=== PATIENT | male | born 1940 | race Hispanic/Latino ===

== ENCOUNTER 2018-09-11 11:59 | Inpatient (IN) | payer BC, MEDICARE ==
[2018-09-11] VITALS (22 sets, daily range): BP systolic 123–178; BP diastolic 58–91
[~2018-09-11] VITALS: Ht 165.1 cm; Wt 60.3 kg
--- NOTE | 2018-09-11 12:40 | NUR ---
PATIENT RECEIVED FROM [facility] BY STRETCHER. ALERT TO PERSON, ABLE TO OPEN EYES WHEN NAME CALLED. MCBRIDE CATHETER WITH CLOUDY URINE. ASSISTED WITH DIAPER CHANGE, HAD A LARGE BM. REPOSITIONED IN BED. PATIENT VOMITED MODERATE AMOUNT OF GREENISH FLUID. V/S CHECKED, 99.5-151-21-166/88 AND 83% ON 3L N/C. O2 INCREASED TO 8L, BUT STILL NO CHANGE. MD NOTIFIED NEW ORDERS RECEIVED TO TRANSFER PATIENT TO ICU. PATIENT CHANGED, EMESIS BAGS PROVIDED. FAMILY AT BED SIDE. BED IN LOWER POSITION, CALL LIGHT AT REACH.
[2018-09-11] MEDS ORDERED: ONDANSETRON HCL INJ 2MG/ML 2ML 2 MG/ML VIAL IV PRN (12:45)
[2018-09-11] MEDS ORDERED: HYDRALAZINE HCL 20 MG/ML VIAL IV PRN (12:45)
--- NOTE | 2018-09-11 13:15 | NUR ---
REPORT CALLED AND GIVEN TO RECEIVING NURSE. PATIENT TRANSFERRED TO ICU ROOM 192.
[2018-09-11 13:43] LABS: BASOPHILS % 0.1 % (0.0-1.0); HEMATOCRIT 35.1 % (38.2-49.6); HEMOGLOBIN 11.1 g/dL (14.0-18.0); LYMPHOCYTES # (AUTO) 0.4 (1.0-3.2); MEAN CORPUSCULAR HEMOGLOBIN 23.4 pg (28-32); MEAN CORPUSCULAR HGB CONC 31.6 g/dL (31-35); MEAN CORPUSCULAR VOLUME 73.9 fL (81-99); MONOCYTES # (AUTO) 1.1 (0.2-0.8); MONOCYTES % 6.2 % (4.4-11.3); NEUTROPHILS # (AUTO) 16.5 (2.1-6.9); PLATELET COUNT 416 x10e3/uL (140-360); RED BLOOD COUNT 4.75 x10e6/uL (4.3-5.7); RED CELL DISTRIBUTION WIDTH 20.4 % (11.7-14.4)
[2018-09-11 13:51] LABS: ANION GAP 13.4 mmol/L (8-16); BLOOD UREA NITROGEN 23 mg/dL (7-26); BUN/CREATININE RATIO 27 (6-25); CALCIUM 9.1 mg/dL (8.4-10.2); CARBON DIOXIDE 21 mmol/L (22-29); CHLORIDE 97 mmol/L (98-107); CREATININE, SERUM 0.85 mg/dL (0.72-1.25); EST GLOMERULAR FILTRATION RATE > 60 ML/MIN (60-); GLUCOSE 189 mg/dL (74-118); MAGNESIUM 1.7 MG/DL (1.3-2.1); POTASSIUM 3.4 mmol/L (3.5-5.1); SODIUM 128 mmol/L (136-145)
[2018-09-11] MEDS ORDERED: SODIUM CHLORIDE 0.9% 250ML 250 ML ONE (13:52)
[2018-09-11] MEDS: D5NS/KCL 20MEQ 1,000 ML IV SCH ×2 (14:00→21:44)
[2018-09-11] MEDS: CEFTRIAXONE SOD 1 GM/NS 50 ML 50 ML IV SCH (14:01)
[2018-09-11 14:20] LABS: ABG HCO3 20 mmol/L (23-28); ABG PCO2 30 mmHg (41-51); ABG PH 7.44 (7.31-7.41); ABG PO2 55 mmHg (80-105)
--- NOTE | 2018-09-11 14:22 | Diagnostic Imaging Report ---
Examination: Single AP view of the chest. COMPARISON: None. INDICATION: Respiratory distress DISCUSSION: Lines/tubes: None. Lungs: Mild lingular opacity. Pleura: No pleural effusion or pneumothorax. Heart and mediastinum: The heart and the mediastinum are unremarkable. Bones and soft tissues: No acute bony abnormalities. IMPRESSION: 1. Lingular opacity may reflect pneumonia. Signed by: Dr. Juan Romo M.D. on 09/11/2018 2:19 PM
[2018-09-11] MEDS: CLINDAMYCIN 600MG / 50ML 50 ML IV SCH ×2 (14:57→23:01)
[2018-09-11] MEDS: AZITHROMYCIN 500MG/NS 250 ML 250 ML IV SCH (14:57)
[2018-09-11] MEDS ORDERED: OMEPRAZOLE40 MG PO (15:32)
[2018-09-11] MEDS ORDERED: TARON FORTE CA1 EACH PO (15:32)
[2018-09-11] MEDS ORDERED: FLOMAX0.4 MG PO (15:32)
[2018-09-11] MEDS ORDERED: PIROXICAM20 MG PO (15:32)
[2018-09-11] MEDS ORDERED: BACLOFEN10 MG PO (15:32)
[2018-09-11] MEDS: NYSTATIN 15 GM POWDER UD BTL TOP SCH (16:35)
[2018-09-11] MEDS: FAMOTIDINE 20 MG/2 ML VIAL IV SCH (16:35)
[2018-09-11] MEDS: ENOXAPARIN 30 MG/0.3 ML SYR SC SCH (16:35)
--- NOTE | 2018-09-11 17:07 | Diagnostic Imaging Report ---
EXAMINATION: CT of the chest, abdomen and pelvis with contrast. TECHNIQUE: Helical CT images of the chest, abdomen and pelvis were performed from the lung apices to the lesser trochanters after the intravenous administration of 100 cc of Isovue 300 and the oral administration of none. Coronal and sagittal reformatted images were obtained. Dose modulation, iterative reconstruction, and/or weight based adjustment of the mA/kV was utilized to reduce the radiation dose to as low as reasonably achievable. COMPARISON: None. CLINICAL HISTORY:Leukocytosis, evaluate for aspiration. Altered mental status. DISCUSSION: CHEST: LINES/TUBES: None. LUNGS AND AIRWAYS: Aspiration/pneumonia within the left lower lobe. Pulmonary arteriovenous malformation within the lingula. Atelectasis in the right dependent lung. PLEURA: The pleural spaces are clear.No significant mediastinal, hilar or axillary lymphadenopathy is seen. HEART AND MEDIASTINUM: The thyroid gland is normal. The heart and pericardium are within normal limits. LYMPH NODES: BONES AND SOFT TISSUES: No bony destructive lesions. No soft tissue abnormalities. ABDOMEN/PELVIS: HEPATOBILIARY:No focal hepatic lesions. No biliary ductal dilation. The gallbladder is normal. SPLEEN: No splenomegaly. PANCREAS: No focal masses or ductal dilatation. ADRENALS: No adrenal nodules. KIDNEYS/URETERS: No hydronephrosis, stones, or solid mass lesions. PELVIC ORGANS/BLADDER: Circumferential bladder wall thickening. Prostate enlarged. Hawley catheter present. Multiple probable calculi within the posterior bladder lumen. PERITONEUM/RETROPERITONEUM: No free air or fluid. LYMPH NODES: No intra-abdominal,retroperitoneal, pelvic or inguinal lymphadenopathy. VESSELS: The celiac trunk,superior and inferior mesenteric and bilateral renal arteries are patent The portal, superior mesenteric and splenic veins are patent. GI TRACT: No distention or wall thickening. BONES AND SOFT TISSUES: No bony destructive lesions. No soft tissue abnormalities. IMPRESSION: Left lower lobe aspiration/pneumonia. Prostate hypertrophy with multiple bladder calculi. Hawley catheter present. Signed by: Dr. Juan Romo M.D. on 09/11/2018 5:04 PM
[2018-09-11] MEDS ORDERED: SODIUM CHLORIDE 0.9% 50ML 50 ML ONE (17:35)
[2018-09-11] MEDS ORDERED: IOPAMIDOL 370 MG/ML 200 ML INFUS..BTL INJ ONE (17:35)
[2018-09-11] MEDS ORDERED: ACETAMINOPHEN 1000 MG/100 ML IV SCH (18:00)
--- NOTE | 2018-09-11 18:10 | Diagnostic Imaging Report ---
EXAMINATION: Abdominal ultrasound. CLINICAL INDICATION: Nausea and vomiting COMPARISON: CT September 11 DISCUSSION: Transverse and longitudinal images of the upper abdomen were obtained. The liver is normal in size measuring 13.1 centimeters in length in the right midclavicular line and shows normal echogenicity. No focal masses are seen in the liver. There is no intrahepatic biliary dilatation. The common bile duct measures 0.3 cm. The gallbladder contains echogenic sludge. No calculi. No wall thickening. Pancreas and spleen poorly visualized. The right kidney measures 9.5 centimeters in length and the left kidney measures 9.3 centimeters. There is normal renal cortical echogenicity and no hydronephrosis, solid mass or shadowing calculi. The visualized portions of the great vessels are normal. No free fluid is seen. IMPRESSION: Gallbladder sludge, otherwise unremarkable. Signed by: Dr. Juan Romo M.D. on 09/11/2018 6:07 PM
--- NOTE | 2018-09-11 19:05 | Consultation ---
DATE OF CONSULTATION: Pulmonary Critical Care Consultation CHIEF COMPLAINT: Syncope, infiltrate on chest x-ray, and decreased responsiveness. HISTORY OF PRESENT ILLNESS: The patient is a 77-year-old man. According to the family, he had no prior cardiopulmonary disease. He has been losing some weight over the past couple of months. Two weeks ago, he had a syncopal episode. He had another syncopal episode today and went to [facility]. They had difficulty arousing the patient. They also did a chest x-ray that showed an infiltrate consistent with aspiration pneumonia. His white blood cell count was 12.3 and hemoglobin was low at 10.7 with decreased MCV. PAST MEDICAL HISTORY: 1. Benign prostatic hypertrophy. 2. Gastroesophageal reflux. PAST SURGICAL HISTORY: Noncontributory. SOCIAL HISTORY: The patient is not a smoker. He is not a drinker. ALLERGIES: THE PATIENT HAS NO KNOWN DRUG ALLERGIES. REVIEW OF SYSTEMS: The patient is not responding well. He may have had some fevers at home, although this is uncertain. He is not having headache or neck pain. He has no chest pain. He does have increased congestion and increased cough. He has some dyspnea. He has no abdominal pain. He has no nausea or vomiting. He has no leg edema. PHYSICAL EXAMINATION: VITAL SIGNS: The patient is afebrile. His oxygen saturation is low on a nasal cannula in the low 80s. HEENT: Shows no facial swelling or erythema. The nasal mucosa is normal. The oropharynx is dry. He has poor dentition. LYMPHATIC: Shows no submandibular, cervical, or supraclavicular adenopathy. CARDIAC: Reveals regular rate and rhythm with normal S1 and S2. There are no murmurs or rubs heard. LUNGS: Auscultation of lungs reveals rhonchorous breath sounds bilaterally. There is no wheezing. ABDOMEN: Soft and nontender. There is no rebound or guarding. EXTREMITIES: No leg edema or calf tenderness. There is no cyanosis or clubbing. SKIN: Shows no rashes. NEUROLOGIC: Shows the patient to be poorly responsive. RADIOGRAPHIC DATA: Chest x-ray shows basal infiltrate on the left side. IMPRESSION: 1. Aspiration pneumonia with sepsis, present on admission. 2. Metabolic encephalopathy. 3. Moderate protein-calorie malnutrition. 4. Microcytic anemia secondary to chronic blood loss. 5. Prostatic hypertrophy. 6. Recent weight loss. PLAN: 1. The patient will have ABG and be placed on higher level of oxygen or BiPAP. 2. Intensive care unit. 3. Panculture. The patient will begin broad-spectrum antibiotics to cover for aspiration pneumonia. 4. The patient needs CT scan of the chest as well as possible MRI of the head. 5. GI evaluation for blood loss. 6. Case discussed with daughter, nursing, and Citlalli Miguel, family nurse practitioner. Josh Simpson MD [facility] /[id number]
[2018-09-11] MEDS ORDERED: CYPROHEPTADINE H4 MG PO (21:27)
[2018-09-11] MEDS ORDERED: CEFDINIR125 MG/5 M (21:31)
[2018-09-11] MEDS ORDERED: ACETAMINOPHEN 650 MG SUPP PR PRN (22:15)
[2018-09-11 23:13] LABS: INR 1.52; PROTHROMBIN TIME 18.9 seconds (11.9-14.5)
[2018-09-11 23:14] LABS: PARTIAL THROMBOPLASTIN TIME 42.6 seconds (23.8-35.5)
[2018-09-12] VITALS (25 sets, daily range): BP systolic 94–156; BP diastolic 53–81
--- NOTE | 2018-09-12 | NUR ---
Unsuccessful attempt to place Ngt and small amout of nasal bleeding noted. Called and spoke with H.Prince GARCIA. Coagulation labs were done and reported back to H.Prince GARCIA. Due to slight elevation of PT/PTT and history of nose bleeds, was advised to not attempt placement again tonight. Await re-eval today and further orders from Dr Falcon's team.
[2018-09-12 04:54] LABS: BASOPHILS % 0.2 % (0.0-1.0); EOSINOPHILS % 0.2 % (0.0-6.0); HEMATOCRIT 30.1 % (38.2-49.6); HEMOGLOBIN 9.4 g/dL (14.0-18.0); LYMPHOCYTES # (AUTO) 0.7 (1.0-3.2); LYMPHOCYTES % 4.7 % (18.0-39.1); MEAN CORPUSCULAR HEMOGLOBIN 23.3 pg (28-32); MEAN CORPUSCULAR HGB CONC 31.2 g/dL (31-35); MEAN CORPUSCULAR VOLUME 74.5 fL (81-99); MONOCYTES # (AUTO) 1.4 (0.2-0.8); MONOCYTES % 8.9 % (4.4-11.3); NEUTROPHILS # (AUTO) 13.5 (2.1-6.9); NEUTROPHILS % 85.5 % (38.7-80.0); PLATELET COUNT 280 x10e3/uL (140-360); RED BLOOD COUNT 4.04 x10e6/uL (4.3-5.7); RED CELL DISTRIBUTION WIDTH 20.5 % (11.7-14.4)
[2018-09-12 05:12] LABS: ANION GAP 10.8 mmol/L (8-16); BLOOD UREA NITROGEN 16 mg/dL (7-26); BUN/CREATININE RATIO 23 (6-25); CALCIUM 8.4 mg/dL (8.4-10.2); CARBON DIOXIDE 22 mmol/L (22-29); CHLORIDE 111 mmol/L (98-107); CREATININE, SERUM 0.71 mg/dL (0.72-1.25); EST GLOMERULAR FILTRATION RATE > 60 ML/MIN (60-); GLUCOSE 154 mg/dL (74-118); MAGNESIUM 1.9 MG/DL (1.3-2.1); POTASSIUM 3.8 mmol/L (3.5-5.1); SODIUM 140 mmol/L (136-145)
[2018-09-12 05:23] LABS: B-TYPE NATRIURETIC PEPTIDE2 144.2 pg/mL (0-100)
[2018-09-12 05:34] LABS: FREE T4 (FREE THYROXINE) 0.98 ng/dL (0.9-1.8); THYROID STIMULATING HORMONE 1.822 uIU/mL (0.350-4.940)
[2018-09-12] MEDS: D5NS/KCL 20MEQ 1,000 ML IV SCH ×3 (05:36→21:26)
[2018-09-12] MEDS: CLINDAMYCIN 600MG / 50ML 50 ML IV SCH ×3 (05:36→21:39)
[2018-09-12] MEDS: FAMOTIDINE 20 MG/2 ML VIAL IV SCH ×2 (08:44→16:20)
[2018-09-12] MEDS: NYSTATIN 15 GM POWDER UD BTL TOP SCH ×2 (09:00→16:20)
[2018-09-12] MEDS: TAMSULOSIN HCL 0.4 MG CAP PO SCH (09:00)
[2018-09-12] MEDS: PANTOPRAZOLE SOD 40 MG TABEC PO SCH (09:00)
[2018-09-12] MEDS ORDERED: OXYMETAZOLINE HCL 0.05% NAS 1 SPRAY BTL ONE (10:00)
[2018-09-12] MEDS ORDERED: GADOBENATE DIMEGLUMINE 1 ML IV ONE (10:32)
--- NOTE | 2018-09-12 11:32 | Progress Note ---
DATE: SUBJECTIVE: The patient received IV fluids and antibiotics yesterday. He is more awake. He was evaluated by Speech Pathology and felt to be a risk for aspiration. The nursing staff attempted to put in an NG tube last night, but he had some nostril bleeding. PHYSICAL EXAMINATION: VITAL SIGNS: The patient is afebrile. The blood pressure is 111/62 and the pulse is 71. Saturation is 100%. HEENT: Shows no facial swelling or erythema. The nasal mucosa is normal. The oropharynx is normal. LYMPHATIC: Shows no submandibular, cervical or supraclavicular adenopathy. CARDIAC: Reveals regular rate and rhythm with a normal S1 and S2. There are no murmurs or rubs. LUNGS: Auscultation of lungs reveals clear breath sounds bilaterally. There is no wheezing. ABDOMEN: Soft, nontender. There is no rebound or guarding. EXTREMITIES: Show no leg edema or calf tenderness. There is no cyanosis or clubbing. SKIN: Shows no rashes. NEUROLOGICAL: Shows no focal abnormalities. LABORATORY DATA: Hemoglobin is 9.4 with an MCV of 74.5. The platelet count is 280. The white blood cell count is 15.8. The BUN to creatinine ratio is 16 to 0.71. RADIOGRAPHIC DATA: CT scan of the abdomen, pelvis and chest shows a left lower lobe aspiration pneumonia and some prostatic hypertrophy. IMPRESSION: 1. Aspiration pneumonia with sepsis, present on admission. 2. Metabolic encephalopathy. 3. Severe protein calorie malnutrition. 4. Microcytic anemia secondary to chronic blood loss. 5. Prostatic hypertrophy. PLAN: 1. The patient will need a nasogastric tube placed under fluoroscopy via Interventional Radiology. 2. Continue current antibiotics. 3. GI consultation for microcytic anemia. 4. Continue IV fluids. 5. Case discussed with the patient, family, nursing staff, and Citlalli Miguel, Family Nurse Practitioner. Josh Simpson MD [facility]/[place] /[id number]
--- NOTE | 2018-09-12 11:59 | Diagnostic Imaging Report ---
MRI BRAIN WOW HISTORY: Altered mental status; syncope, leukocytosis COMPARISON: None. TECHNIQUE: Multiplanar, multisequence MRI of the brain (including diffusion-weighted imaging) was performed before and after the administration of intravenous, gadolinium based contrast. 10 mL of MultiHance were administered. Motion artifacts obscure some details. DISCUSSION: Scalp/bone marrow: Unremarkable. Brain sulci: Mildly prominent. Ventricles: Compensatory dilatation. Extra-axial spaces: No masses or fluid collections. Parenchyma: Innumerable bilateral supratentorial and infratentorial ring-enhancing lesions with local surrounding vasogenic edema are present. The largest lesion measures up to 1.3 cm in the right temporal lobe. Juxtacortical, deep white matter, basal ganglia, thalamic, cerebellar, and medullary lesions are present. Most of these lesions are associated with internal diffusion restriction. Mass effect is local without significant brain herniation. Vessels: Normal flow voids in major arteries and veins. Sellar/Suprasellar region: No abnormalities. Craniocervical junction: There are prominent degenerative changes throughout the upper cervical spine. Atlantoaxial arthrosis is associated with pannus that abuts the cervicomedullary junction. Incidental findings: Mild scattered bilateral paranasal sinus mucosal thickening is present. There is a small retention cyst in the right maxillary sinus. Bilateral T2 hyperintense mastoid effusions are present. IMPRESSION: 1. Innumerable bilateral supratentorial and infratentorial ring-enhancing lesions with vasogenic edema are concerning for multifocal abscesses/septic emboli. Mass effect is local without significant brain herniation. 2. Mild generalized cerebral volume loss. Signed by: Dr. Cody Cheung M.D. on 09/12/2018 11:55 AM
[2018-09-12] MEDS: CEFTRIAXONE SOD 1 GM/NS 50 ML 50 ML IV SCH (12:45)
[2018-09-12] MEDS: AZITHROMYCIN 500MG/NS 250 ML 250 ML IV SCH (13:30)
[2018-09-12 14:51] LABS: BILIRUBIN,URINE NEGATIVE (NEGATIVE); CLARITY,URINE HAZY (CLEAR); COLOR,URINE YELLOW (YELLOW); KETONES,URINE NEGATIVE (NEGATIVE); LEUKOCYTE ESTERASE ,URINE NEGATIVE (NEGATIVE); NITRITE,URINE NEGATIVE (NEGATIVE); PROTEIN,URINE DIPSTICK 2+ (NEGATIVE); URINE UROBILINOGEN 0.2 mg/dL (0.2 - 1)
[2018-09-12 15:07] LABS: RBC,URINE >50 /HPF (0-5); WBC,URINE (MAN) 0-5 /HPF (0-5)
[2018-09-12 15:08] LABS: BACTERIA,URINE RARE /HPF
[2018-09-12 15:09] LABS: URIC ACID CRYSTALS,URINE MANY (FEW)
[2018-09-12] MEDS: ENOXAPARIN 30 MG/0.3 ML SYR SC SCH (16:20)
--- NOTE | 2018-09-12 16:26 | NUR ---
patient up chair for bedside bath. tolerated well. assisted back to bed after all linen changed. VSS and no signs of distress
--- NOTE | 2018-09-12 18:11 | NUR ---
no bm today for stool sample. no sputum production for sputum sample. sent urine sample. will defer to next shift.
[2018-09-12] MEDS: ACETAMINOPHEN 325 MG TAB PO PRN (20:08)
[2018-09-13] VITALS (24 sets, daily range): BP systolic 118–176; BP diastolic 56–79
[2018-09-13 04:44] LABS: BASOPHILS % 0.3 % (0.0-1.0); EOSINOPHILS # (AUTO) 0.1 (0.0-0.4); EOSINOPHILS % 0.6 % (0.0-6.0); HEMATOCRIT 28.1 % (38.2-49.6); HEMOGLOBIN 8.5 g/dL (14.0-18.0); LYMPHOCYTES # (AUTO) 0.9 (1.0-3.2); LYMPHOCYTES % 8.7 % (18.0-39.1); MEAN CORPUSCULAR HEMOGLOBIN 23.5 pg (28-32); MEAN CORPUSCULAR HGB CONC 30.2 g/dL (31-35); MEAN CORPUSCULAR VOLUME 77.8 fL (81-99); MONOCYTES % 9.7 % (4.4-11.3); NEUTROPHILS # (AUTO) 8.5 (2.1-6.9); NEUTROPHILS % 80.2 % (38.7-80.0); PLATELET COUNT 206 x10e3/uL (140-360); RED BLOOD COUNT 3.61 x10e6/uL (4.3-5.7); RED CELL DISTRIBUTION WIDTH 20.8 % (11.7-14.4)
[2018-09-13 05:05] LABS: ANION GAP 9.7 mmol/L (8-16); BLOOD UREA NITROGEN 12 mg/dL (7-26); BUN/CREATININE RATIO 18 (6-25); CALCIUM 8.2 mg/dL (8.4-10.2); CARBON DIOXIDE 21 mmol/L (22-29); CHLORIDE 113 mmol/L (98-107); CREATININE, SERUM 0.66 mg/dL (0.72-1.25); EST GLOMERULAR FILTRATION RATE > 60 ML/MIN (60-); GLUCOSE 127 mg/dL (74-118); POTASSIUM 3.7 mmol/L (3.5-5.1); SODIUM 140 mmol/L (136-145); TOTAL IRON BINDING CAPACITY 153 ug/dL (261-478); TRANSFERRIN 109 mg/dL (174-364)
[2018-09-13 05:12] LABS: % IRON SATURATION 3 % (15-50); IRON < 5 ug/dL (65-175)
[2018-09-13 05:26] LABS: FERRITIN 108.44 ng/mL (21.81-274.66)
[2018-09-13 05:39] LABS: FOLATE 8.9 ng/mL (7.0-15.4)
[2018-09-13] MEDS: D5NS/KCL 20MEQ 1,000 ML IV SCH ×2 (05:57→10:29)
[2018-09-13] MEDS: CLINDAMYCIN 600MG / 50ML 50 ML IV SCH (05:58)
--- NOTE | 2018-09-13 06:52 | NUR ---
Called answering service to notify of consult due to persistent leukocytosis with weight loss. Spoke with
[2018-09-13] MEDS: FAMOTIDINE 20 MG/2 ML VIAL IV SCH ×2 (08:54→17:57)
[2018-09-13] MEDS: TAMSULOSIN HCL 0.4 MG CAP PO SCH (08:55)
[2018-09-13] MEDS: PANTOPRAZOLE SOD 40 MG TABEC PO SCH (08:55)
[2018-09-13] MEDS ORDERED: SODIUM FERRIC GLUCONATE COMPLX 125 MG in SODIUM CHLORIDE 0.9% 100 ML 100 ML IV SCH (09:00)
[2018-09-13] MEDS: NYSTATIN 15 GM POWDER UD BTL TOP SCH ×2 (09:00→17:00)
[2018-09-13] MEDS: SODIUM FERRIC GLUCONATE COMPLX 125 MG in SODIUM CHLORIDE 0.9% 100 ML 100 ML IV SCH (09:05)
[2018-09-13] MEDS ORDERED: HYDRALAZINE HCL 20 MG/ML VIAL IV PRN (10:30)
[2018-09-13] MEDS: GUAIFENESIN 600 MG TAB PO SCH ×2 (10:30→20:47)
[2018-09-13] MEDS: ALBUTEROL/IPRATROPIUM 3 ML NEB NEB SCH ×2 (11:10→19:37)
--- NOTE | 2018-09-13 12:59 | NUR ---
Nutrition Intervention Note RD Recommendation(s) for Physician: - Pending results of MBSS, recommend feeding tube placement by IR and initiate TF of Osmolite 1.2 at 20 ml/hr. Advance as tolerated to goal rate of 55 ml/hr (to provide 1584 kcal and 73 gm protein). - Water flushes and fluid management per MD. - If pt safe for PO/diet, recommend diet per SENIOR SOFTWARE DEVELOPMENT ENGINEER/MD. Plan of Care: RD following, TF rec's, monitoring for tolerance and adequacy Nutrition reason for involvement: MD Consult- TF rec's RD Assessment 09/13: 77 YOM admitted for syncope, leukocytosis, and AMS. Pt seen today per MD consult for TF rec's. Pt discussed during am rounds, pt with possible infectious lesions to brain. Unable to obtain nutrition hx at time of visit. Pt with high risk of aspiration per SENIOR SOFTWARE DEVELOPMENT ENGINEER, MBSS pending today per RN. Noted TF placement attempted by MD however pt developed nose bleed and plan for placement with IR is still pending. TF rec's and POC discussed with RN. Principal Problems/Diagnoses: syncope, leukocytosis, AMS PMH: GERD GI: LBM 09/11 Skin: intact Labs: 09/13: BMP WNL Meds: abx, Fe Gluconate IV, protonix, zofran Ht: 65 in Wt: 118 lb BMI: 19.63 IBW: 136 lb Malnutrition Evaluation (09/13/18) The patient does not meet criteria for a specified degree of malnutrition at this time. Will re-evaluate at follow-up as appropriate. Nutrition Prescription (Diet Order): Jevity 1.2 ordered, no TF initiated Estimated Nutritional Needs: 1338-1873calories/day (25-35 kcal/kg CBW) 54-80 g protein/day (1-1.5 g pro/kg CBW) Diet Adequacy: Not meeting calorie needs, Not meeting protein needs Diet Education Needs Assessment: Diet education not indicated, patient on temporary/transition diet. Nutrition Care Level: Mod Nutrition Diagnosis: Inadequate energy and protein intake due to AMS and po diet safety as evidenced by requiring EN. Goal: Patient will meet 75-100% of estimated needs by follow up Progress: N/A Interventions: Composition, Rate, Route, Collaboration with other providers Monitoring/Evaluation: Total energy intake, Total protein intake, Formula/Solution, IVF, Prescription medication, Modified Signed: Andreea Kramer RD, LD, CNSC
[2018-09-13] MEDS: AZITHROMYCIN 500MG/NS 250 ML 250 ML IV SCH (14:27)
[2018-09-13] MEDS: CEFTRIAXONE SOD 1 GM/NS 50 ML 50 ML IV SCH (14:27)
--- NOTE | 2018-09-13 15:23 | Progress Note ---
DATE: Pulmonary Critical Care Progress Note SUBJECTIVE: MRI of the head showed multiple small ring-enhancing lesions with vasogenic edema. The patient is still awaiting enteral feeding tube, his oxygen has been weaned off. PHYSICAL EXAMINATION: VITAL SIGNS: The patient is saturating 100% on room air. Respiratory rate is 16. Pulse is 62. HEENT: Shows no facial swelling or erythema. CARDIAC: Reveals regular rate and rhythm with normal S1 and S2. LUNGS: Auscultation of lungs reveals clear breath sounds bilaterally. There is no wheezing. ABDOMEN: Soft, nontender. There is no rebound or guarding. EXTREMITIES: Show no leg edema or calf tenderness. There is no cyanosis or clubbing. SKIN: Shows no rashes. NEUROLOGICAL: Shows no focal abnormalities. IMPRESSION: 1. Aspiration pneumonia with sepsis, present on admission. 2. Severe protein calorie malnutrition. 3. Microcytic anemia secondary to chronic blood loss. 4. 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 PLAN: 1. Await Neurology evaluation. 2. Continue current antibiotics. 3. Complete swallowing evaluation. 4. The patient needs enteral feeding tube and nutrition. 5. Continue IV fluids. Josh Simpson MD [facility] /[id number]
--- NOTE | 2018-09-13 16:18 | Consultation ---
DATE OF CONSULTATION: 09/13/[address] Falcon for this consultation. REASON FOR CONSULTATION: Anemia. HISTORY OF PRESENT ILLNESS: The patient is a very pleasant 77-year-old gentleman with a history of benign prostatic hypertrophy, GERD, recent hospital admission with sepsis, currently in hospital with altered mental status, syncopal episode, fatigue, lethargic and tiredness. The patient had elevated white cell count at admission. Hemoglobin was 10. The patient's initial x-ray shows possible infiltrate with aspiration pneumonia. The patient also has a history of weight loss, poor appetite, and recent history of very lethargic. The patient had workup done, which shows worsening anemia. Peripheral smear shows low MCV. The patient had CT abdomen, chest, and pelvic, consistent with pneumonia. The patient also had MRI of brain, which shows ring enhancing lesion, possible septic emboli or abscesses. PAST MEDICAL HISTORY: BPH, GERD, recent history of sepsis. PAST SURGICAL HISTORY: Not relevant. SOCIAL HISTORY: No current smoking, alcohol, or drugs. Raised with supportive family. ALLERGIES: NKDA. MEDICATIONS: List reviewed. REVIEW OF SYSTEMS: As per HPI. PHYSICAL EXAMINATION: GENERAL: Alert, awake, communicative, not in acute distress. The patient in intensive care unit. HEENT: Normocephalic, atraumatic. Sclerae pale. Conjunctivae clear. NECK: Supple. CHEST: Decreased breath sounds at bases. CARDIOVASCULAR: Regular rate and rhythm. EXTREMITIES: No clubbing, cyanosis, or edema. HARD TILE SETTER: Intact. LABORATORY AND IMAGING DATA: Reviewed. ASSESSMENT AND PLAN: The patient with history of multiple medical conditions and currently macrocytic anemia. Workup so far showed iron deficiency. Recommendation to start the patient on iron infusion Try to avoid frequent blood draw. Initial admission was hemoconcentration. We will follow the patient. Pneumonia/sepsis/brain septic emboli/brain abscesses. On antibiotic. Primary care following patient. We will follow up primary care recommendation. We will follow the patient closely. MD CORNELIUS [facility]/[place] /[id number]
[2018-09-13 17:21] LABS: HIV 1&2 AB SCREEN NON-REACTIVE (NONREACTIVE)
[2018-09-13] MEDS: ENOXAPARIN 30 MG/0.3 ML SYR SC SCH (17:57)
--- NOTE | 2018-09-13 17:57 | NUR ---
WOUND CARE CONSULTATION- INITIAL EVALUATION Patient admitted for Syncope with Leukocytosis, AMS, S/p Fall from Home HX: BPH, GERD, Recent Sepsis. LABS: WBC10.57 HGB8.5 HCT28.1 NEUT%80.[address] of Abd. and Pelvis - Asp PNA LLL WC Consulted for evaluation of Sacral Area. PATIENT VISIT: Patient AAOX3, Patient calm and cooperative. Follows Direction Well Sacral area with Allevyn Foam Sacrum in place. Removed, soiled with stool. No Pressure Ulcers identified. Area pink dry and intact. No Redness noted. Patient positioned left with pillow assist. Ruben Score 12 Alternating Pressure Air Mattress in Place and Set to patient Current weight of 118 lbs. IMPRESSION: No Pressure Ulcers Identified. RECOMMENDATION: Continue Strict PUP Protocol. Thank you for consulting with Wound Care. Addendum: 09/13/18 at 1804 by Robert Petit RN Amended: Links added.
--- NOTE | 2018-09-13 19:00 | NUR ---
Report received. Assumed care. Assessment done. See interventions. A&O x2. Room air with sats 100%. IV D5NS with 20 KCL @ 125ml/hr.
[2018-09-13] MEDS ORDERED: FOSPHENYTOIN 50 MG/ML VIAL IV STA (19:06)
[2018-09-13] MEDS: PIPER-TAZ 3.375 GM 50 ML IV SCH (19:23)
[2018-09-13] MEDS ORDERED: FOSPHENYTOIN 50 MG/ML 10ML VIAL ONE (19:28)
[2018-09-13] MEDS ORDERED: FOSPHENYTOIN 1,000 MG in SODIUM CHLORIDE 0.9% 100 ML 100 ML IV ONE (19:30)
[2018-09-13] MEDS: VANCOMYCIN 1GM/NS 250 ML 250 ML IV SCH (19:39)
[2018-09-13] MEDS ORDERED: SODIUM CHLORIDE 0.9% 250ML 250 ML ONE (19:46)
--- NOTE | 2018-09-13 22:17 | Diagnostic Imaging Report ---
Examination: Single AP view of the chest. COMPARISON: September 11, 2018 INDICATION: Line placement DISCUSSION: Lines/tubes: PICC line with tip overlying the cavoatrial junction. Lungs: Left lower lobe opacity. Pleura: No pleural effusion or pneumothorax. Heart and mediastinum: The heart and the mediastinum are unremarkable. Bones and soft tissues: No acute bony abnormalities. IMPRESSION: Left PICC line with tip overlying the cavoatrial junction. Signed by: Dr. Juan Romo M.D. on 09/13/2018 10:13 PM
--- NOTE | 2018-09-13 23:45 | Consultation ---
DATE OF CONSULTATION: REASON FOR CONSULTATION: Sepsis, possible brain abscess. HISTORY OF PRESENT ILLNESS: This is a 77-year-old [place] male. The patient apparently was walking up until a couple of months ago. 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 Three to four weeks ago, he was sick. He went to an outside facility. He was there for a week. He was diagnosed with UTI with bacteremia. The patient was given antibiotic. He was there for a week, was sent home. He was getting weak, not eating. The patient was taken back to the emergency room and he was transferred here per family request. The patient was started on IV fluids and IV antibiotic. He is currently more alert, feeling better according to the family, but still very weak. The patient also has history of poor dentition, most of teeth. He has a history of benign prostatic hypertrophy. According to the family, he was here for illness. PAST MEDICAL HISTORY: Benign prostatic hypertrophy, gastroesophageal reflux disease. PAST SURGICAL HISTORY: Denies. MEDICATIONS: The patient is currently on azithromycin, Rocephin, clindamycin. ALLERGIES: NO KNOWN DRUG ALLERGIES. SOCIAL HISTORY: There is no smoking, drug abuse, or alcohol abuse. FAMILY HISTORY: Noncontributory. REVIEW OF SYSTEMS: HEENT: There is no headache, visual changes, hearing changes. He does have dry mouth. : There is no urgency, no frequency. He has a Hawley now. GI: There is some nausea, better now. He has no appetite. SKIN: There is no rash. JOINT: There is no erythema or edema. NEURO: No focal finding. No seizure activity. LABORATORY DATA: When he first came, white count was 18.11, hemoglobin 11, hematocrit 35, his platelets 416. Blood gas pH 7.44, pCO2 30, PO2 of 55. Sodium 140, potassium 3.7, creatinine 0.66. BNP is 144. Blood cultures, no growth in 24 hours. He had an MRI of the brain showed bilateral multiple ring-enhancing lesions. PHYSICAL EXAMINATION: GENERAL: He is currently alert, oriented, does not seem to be in acute distress. VITAL SIGNS: Stable. Currently afebrile. HEENT: Normocephalic. Not icteric. NECK: Supple. CHEST: Clear bilateral. HEART: S1 and S2. No murmurs. ABDOMEN: Soft. Bowel sounds present. No tenderness. EXTREMITIES: No edema. SKIN: No rash. IMPRESSION: Sepsis on admission, brain abscess, left lower lobe pneumonia, probably aspiration, benign prostatic hypertrophy, multiple bladder calculi, congestive heart failure, hypoxemia. I would recommend obtain blood cultures, which is done, sed rate and C-reactive protein. ESEQUIEL to rule out endocarditis. Obtain the old records from the hospital and the patient does have poor dental. This could be the source of his infection. We will put him on Zosyn and vancomycin until we get the identification of bacteria that is eight weeks of IV antibiotic. Further recommendations to follow. MD PAUL Alvarez/[place] /[id number]
[2018-09-14] VITALS (21 sets, daily range): BP systolic 118–149; BP diastolic 55–73
--- NOTE | 2018-09-14 00:40 | Consultation ---
DATE OF CONSULTATION: 09/13/2018 Neurology Consult Note HISTORY OF PRESENT ILLNESS: Mr. Betts is a 77-year-old right-hand dominant man with past medical history significant for iron deficiency anemia and benign prostatic hypertrophy, admitted to [facility] as a transfer from an outside hospital for higher level of care. On August 23, 2018, the patient developed lethargy, confusion, generalized weakness, impairment of speech, and impairment of gait. Mr. Betts was taken to the emergency center of a local hospital by his family members and diagnosed with a urinary tract infection. He was hospitalized for one week for intravenous antibiotics and intravenous fluids. At the time of discharge, the patient's family members report Mr. Betts's symptoms appeared moderately improved. However, once at home, the patient had decreased oral intake due to a lack of desire for food and drink. The decreased interest in eating and drinking as well as poor oral intake persisted for approximately one week. On September 05, 2018, the patient was seen by his primary care physician, Dr. Jarquin. Dr. Jarquin ordered blood work to evaluate the patient's white blood cell count as well as his hemoglobin and hematocrit. On this day, the patient's family members report Mr. Betts seemed to be "feeling better", but still exhibited decreased desire for food and drink and poor oral intake. On September 10, 2018, the patient experienced a syncopal event. He was once again taken to the emergency center of the outside hospital, where he was recently hospitalized for urinary tract infection. From this hospital, the patient was transferred to [facility] for a higher level of care. While at [facility], the patient has undergone numerous diagnostic studies. Of particular interest to myself, is an MRI of the brain with and without contrast performed on September 12, 2018. This study revealed numerous ring- enhancing lesions with surrounding vasogenic edema. The results of the study prompted a request for neurological consultation. Mr. Betts has not traveled outside of the [facility] [place] in the past year. To their knowledge, the patient's family members do not report consumption of undercooked meats or improperly prepared foods. To their knowledge, Mr. Betts has never undergone neuro imaging studies in the past. Prior to the past few weeks, Mr. Betts has never demonstrated a visual field cut or other disturbance, dysarthria, aphasia, weakness, numbness, tingling, poor balance, impairment of gait, dizziness, or confusion. His family members do not report activity suspicious for seizure. REVIEW OF SYSTEMS: Fatigue, lethargy, unintentional weight loss, decreased oral intake, nausea, diffuse joint pain, confusion, and syncope. Otherwise, a 12-point review of systems is negative. PAST MEDICAL HISTORY: Iron deficiency anemia and benign prostatic hypertrophy. PAST SURGICAL HISTORY: Appendectomy. PAST HOSPITALIZATIONS: Surgeries/procedures as listed. FAMILY MEDICAL HISTORY: Hypertension and end-stage renal disease. SOCIAL HISTORY: Mr. Betts is . 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 The patient does not report current or prior tobacco, alcohol, or recreational drug use. HOME MEDICATIONS: Baclofen 20 mg by mouth daily, cefdinir 300 mg by mouth twice daily, cyproheptadine 4 mg tablet, Benjamin Forte capsule one capsule by mouth daily, omeprazole 40 mg by mouth daily, paroxetine 20 mg by mouth daily, and tamsulosin 0.4 mg by mouth daily. HOSPITAL MEDICATIONS: Tylenol, DuoNeb, Lovenox, Pepcid, ferric sodium gluconate, Mucinex, hydralazine, nystatin, Zofran, Protonix, Zosyn, potassium chloride/dextrose/sodium chloride, tamsulosin, and vancomycin. ALLERGIES: NO KNOWN DRUG ALLERGIES. NO KNOWN FOOD ALLERGIES. NO KNOWN ALLERGIES TO LATEX. NO KNOWN ALLERGIES TO IODINE OR OTHER CONTRAST MATERIALS. PHYSICAL EXAMINATION: VITAL SIGNS: Height 65 inches, weight 118 pounds, BMI 19.6 kg/m2, blood pressure 141/71 mmHg, pulse 58 beats per minute, respiratory rate 18 breaths per minute, and oxygen saturation 98% on room air. GENERAL: The patient is awake and alert, does not appear distressed. HEENT: Normocephalic and atraumatic. Pupils are equal, round, and reactive to light. Moist mucous membranes. NECK: Supple. No appreciable thyromegaly. No appreciable carotid bruits. CARDIOVASCULAR: S1, S2, regular rate and rhythm. No murmurs, rubs, or gallops. RESPIRATORY: Decreased breath sounds over the right lung anteriorly. EXTREMITIES: The skin is warm and dry. No clubbing, cyanosis, or edema. The posterior tibial and dorsalis pedis pulses are 1+ and symmetric. SKIN: No rashes or lesions. NEUROLOGIC: Memory/Attention: The patient is awake and alert, oriented to person, place (hospital, city, state), time (day of the week, month, year), but not to situation. Cranial Nerves: Cranial nerve I - not tested. Cranial nerves II, III, IV, and - pupils are equal and round, react briskly to light (from 4 mm to 2 mm). Extraocular movements intact. No nystagmus. Cranial nerve V - sensation to light touch and pinprick is intact in the bilateral V1 through V3 distributions. Strength in the temporalis and masseter muscles are within normal limits. Cranial nerve VII - the face is mildly asymmetric on the left. Facial movements appear symmetric. Strength is within normal limits. Cranial nerve VIII - hearing is diminished to finger rub bilaterally. Cranial nerves IX, X - the soft palate elevates equally and symmetrically. Cranial nerve XI - normal strength of the bilateral sternocleidomastoid and trapezius muscles. Cranial nerve XII - the tongue protrudes midline and moves symmetrically from [id number]. Strength: Bulk is normal. Strength is 5/5 in the bilateral deltoids, biceps, triceps, wrist flexors and extensors, finger flexors and extensors, intrinsic hand muscles, hip flexors, knee flexors and extensors, ankle dorsiflexion and plantar flexion, and intrinsic foot muscles. Tone is normal. DTRs: Deep tendon reflexes are 2+ and symmetric at the triceps, biceps, brachioradialis, patellas, and 1+ and symmetric at the Achilles. Plantar responses are flexor bilaterally. Sensation: Sensation is intact to light touch and pinprick in both arms and both legs. Cerebellar: Tgcjtr-bhwt-ehnqst and heel-jessica movements are intact without dysmetria or other impairment. Gait: Deferred. Speech: Spontaneous speech is normal without appreciable dysarthria or aphasia. Repetition is intact. Involuntary Movements: None. Pronator Drift: None. LABORATORY DATA: The most recent basic metabolic panel is significant for chloride of 113, carbon dioxide of 21, creatinine of 0.66, glucose of 127, and calcium of 8.2. Ammonia 41, B-natriuretic peptide 144.2, 168.8. Vitamin B12 of 1044. Folate 8.9. TSH 1.822, free T4 of 0.98. Hemoglobin A1c 5.7. Iron less than 5, TIBC 153, percent saturation 3, transferrin 109, and ferritin 108.44. The most recent CBC with differential and platelets reveals a white blood cell count of 10.57 with a left shift with 80.2% neutrophils, 8.7% lymphocytes, 9.7% monocytes, 0.6% eosinophils, and 0.3% basophils. The hemoglobin and hematocrit are 8.5 and 28.1, respectively. The platelet count is 206. An arterial blood gas collected on September 11, 2018, revealed a pH of 7.44, pCO2 of 30, pO2 of 55, bicarbonate of 20, O2 saturation of 90.0, base excess of -4.0, and FiO2 of 100. On September 11, 2018, PT 18.9, INR 1.52, and PTT 42.6. A urinalysis collected on September 12, 2018, revealed hazy urine with a specific gravity of 1.030, 2+ protein, 3+ blood, greater than 50 red blood cells, many uric acid crystals, 2 to 5 hyaline casts, 1 to 5 coarse granular casts. HIV #1 and #2 antibody nonreactive. HIV P 24 antigen nonreactive. A sputum Gram stain and culture revealed less than 25 squamous epithelial cells per LPF, few white blood cells, and rare budding yeast. The sputum culture is pending. Blood cultures revealed no growth after 48 hours. A urine culture reveals no growth after 18 to 24 hours. DIAGNOSTIC STUDIES: Chest x-ray on 09/11/2018: Lingular opacity may reflect pneumonia. Abdomen ultrasound on 09/11/2018: Gallbladder sludge, otherwise unremarkable. Chest CT on 09/11/2018: Left lower lobe aspiration/pneumonia. CT of the abdomen/pelvis on 09/11/2018: Prostate hypertrophy with multiple bladder calculi. Hawley catheter present. Echocardiogram on 09/12/2018: Ejection fraction 45% to 50%. Trace aortic insufficiency. The aortic valve is thickened. Bilateral carotid artery ultrasound with Doppler on 09/12/2018: There is atherosclerosis without hemodynamically significant stenosis at the bilateral carotid bulbs and bilateral carotid bifurcations. Flow is antegrade in the bilateral vertebral arteries. MRI of the brain without contrast on 09/12/2018: On my review, there are numerous (approximately two dozen) ring-enhancing lesions in the juxtacortical and deep white matter, basal ganglia, thalami, cerebellum, and medulla. The largest of these lesions measures approximately 1.3 cm with surrounding vasogenic edema. This lesion is located in the right temporal lobe. There is mild diffuse cerebral atrophy with compensatory dilatation of the ventricles. The report from the neuroradiologist indicates only localized mass effect. However, on my review of the images, there appears to be a subtle 2 to 3 mm midline shift, right to left. ASSESSMENT AND PLAN: Mr. Betts is a 77-year-old right-hand dominant man with past medical history as detailed, transferred to [facility] on September 11, 2018, for a higher level of care, found to have multiple ring-enhancing lesions throughout the cerebral hemispheres, cerebellum, and medulla with subtle overall mass effect (2 to 3 mm [id number] midline shift). The patient has undergone a thorough neurological examination with findings detailed above. His laboratory data and other diagnostic studies have been reviewed and are documented above. In my opinion, the etiology of the ring-enhancing lesion seen on the MRI of the brain with and without contrast is most likely infectious. Other possible diagnoses include multiple sclerosis, metastatic lesions, or an underlying autoimmune disease such as neurosarcoidosis. However, Mr. Betts is not of an age or sex, where multiple sclerosis or autoimmune diseases commonly present. Furthermore, the location of the ring-enhancing lesions is not typical of multiple sclerosis. As regards metastatic lesions, CTs of the chest, abdomen, and pelvis have not revealed a primary cancer, which could possibly cause metastatic lesions to the brain. RECOMMENDATIONS: Are as follows: 1. Due to the presence of surrounding vasogenic edema associated with numerous ring-enhancing lesions as well as subtle 2 to 3 mm midline shift (right to left: Mr. Betts will be treated with dexamethasone 4 mg intravenously every 6 hours. The possible side effects of this medication were discussed with the patient and his family members). 2. For seizure prophylaxis, Mr. Betts will receive a loading dose of fosphenytoin 1000 mg intravenously x1 dose (approximately 20 mg/kg). A phenytoin level will be drawn with morning labs on September 14, 2018. On the evening of September 14, 2018, treatment with a maintenance dose of phenytoin 300 mg intravenously at bedtime will be initiated. 3. Defer treatment of the remaining medical comorbidities to the primary and other services following the patient. Thank you for this consultation. I will continue to follow the patient, while he remains in the hospital. TIME SPENT: 70 minutes. Simona Alston MD CP/COLETTE /[id number]
[2018-09-14] MEDS: PIPER-TAZ 3.375 GM 50 ML IV SCH ×4 (00:41→18:13)
[2018-09-14] MEDS: DEXAMETHASONE SOD PHOS INJ 4 MG/ML VIAL IV SCH ×4 (00:41→18:13)
[2018-09-14] MEDS: ALBUTEROL/IPRATROPIUM 3 ML NEB NEB SCH ×4 (01:15→18:55)
[2018-09-14] MEDS: D5NS/KCL 20MEQ 1,000 ML IV SCH (03:44)
[2018-09-14 05:30] LABS: BASOPHILS % 0.5 % (0.0-1.0); EOSINOPHILS % 0.2 % (0.0-6.0); HEMATOCRIT 26.1 % (38.2-49.6); LYMPHOCYTES # (AUTO) 0.4 (1.0-3.2); LYMPHOCYTES % 6.1 % (18.0-39.1); MEAN CORPUSCULAR HGB CONC 30.3 g/dL (31-35); MEAN CORPUSCULAR VOLUME 76.1 fL (81-99); MONOCYTES # (AUTO) 0.1 (0.2-0.8); MONOCYTES % 2.2 % (4.4-11.3); NEUTROPHILS # (AUTO) 5.8 (2.1-6.9); NEUTROPHILS % 90.4 % (38.7-80.0); PLATELET COUNT 225 x10e3/uL (140-360); RED BLOOD COUNT 3.43 x10e6/uL (4.3-5.7); RED CELL DISTRIBUTION WIDTH 20.8 % (11.7-14.4)
[2018-09-14 05:33] LABS: HEMOGLOBIN 7.9 g/dL (14.0-18.0)
[2018-09-14 05:41] LABS: ALBUMIN 1.7 g/dL (3.5-5.0); ALBUMIN/GLOBULIN RATIO 0.5 (0.8-2.0); ALKALINE PHOSPHATASE 48 IU/L (40-150); ANION GAP 8.8 mmol/L (8-16); BLOOD UREA NITROGEN 7 mg/dL (7-26); BUN/CREATININE RATIO 11 (6-25); CALCIUM 7.8 mg/dL (8.4-10.2); CARBON DIOXIDE 22 mmol/L (22-29); CHLORIDE 113 mmol/L (98-107); CREATININE, SERUM 0.63 mg/dL (0.72-1.25); EST GLOMERULAR FILTRATION RATE > 60 ML/MIN (60-); GLUCOSE 158 mg/dL (74-118); POTASSIUM 3.8 mmol/L (3.5-5.1); SODIUM 140 mmol/L (136-145)
[2018-09-14 05:42] LABS: ALANINE AMINOTRANSFERASE < 6 IU/L (0-55)
[2018-09-14] MEDS: VANCOMYCIN 1GM/NS 250 ML 250 ML IV SCH ×2 (05:44→18:45)
[2018-09-14] MEDS: NYSTATIN 15 GM POWDER UD BTL TOP SCH ×2 (08:43→16:13)
[2018-09-14] MEDS: PANTOPRAZOLE SOD 40 MG TABEC PO SCH (08:43)
[2018-09-14] MEDS: TAMSULOSIN HCL 0.4 MG CAP PO SCH (08:43)
[2018-09-14] MEDS: GUAIFENESIN 600 MG TAB PO SCH ×2 (08:43→21:00)
[2018-09-14] MEDS: FAMOTIDINE 20 MG/2 ML VIAL IV SCH ×2 (08:43→16:13)
--- NOTE | 2018-09-14 08:52 | Progress Note ---
DATE: SUBJECTIVE: The patient is seen and examined today. The patient appeared comfortable. Clinical condition is stable. The patient had worsening anemia, hemoglobin dropped to 7.9. The patient was started on iron infusion. No other events noted. No evidence of any active bleeding. The patient is currently is following infectious disease specialist and also neurologist. OBJECTIVE: GENERAL: Alert, awake, and communicative. HEENT: Normocephalic and atraumatic. Sclerae pale. Conjunctivae clear. NECK: Supple. CHEST: Decreased breath sounds on the bases. ABDOMEN: Soft. EXTREMITIES: No edema. LABORATORY AND IMAGING DATA: Labs and imaging reviewed. ASSESSMENT AND PLAN: The patient with history of multiple medical conditions, currently in the hospital with urinary tract infection and history of sepsis. Recent workup shows positive brain abscesses, left lower lobe pneumonia. ID is on the case, so far recommendation ESEQUIEL. Get previous records and continue antibiotic treatment. The patient has persistent anemia, hemoglobin 7.9 with microcytosis. The patient currently on iron infusion. Recommendations to continue current care. Do not recommend blood transfusion. Monitor CBC closely, blood transfusion only if the hemoglobin drops below 7. We will monitor the patient. MD CORNELIUS Bradford/COLETTE /[id number]
--- NOTE | 2018-09-14 09:51 | Diagnostic Imaging Report ---
Exam: Modified barium swallow History: Pneumonia with altered mental status Comparison: None available Findings: Modified barium swallow was performed in conjunction with speech pathology. There is laryngeal penetration with thin liquids. Silent trace aspiration than liquids is also noted. Fluoroscopy time: 3.8 minutes Cumulative dose: 5.36 mGy Impression: 1. Laryngeal penetration with silent trace aspiration. 2. Please see the full report provided by speech pathology. Signed by: Dr. Gaston Edge DO on 09/14/2018 9:48 AM
[2018-09-14] MEDS: SODIUM FERRIC GLUCONATE COMPLX 125 MG in SODIUM CHLORIDE 0.9% 100 ML 100 ML IV SCH (11:00)
--- NOTE | 2018-09-14 12:18 | NUR ---
MCBRIDE CATHETER DC'D AT THIS TIME
[2018-09-14] MEDS: OYST-CAL-D 500MG TABLET PO SCH (16:13)
[2018-09-14] MEDS: MEGESTROL ACETATE 40 MG TAB PO SCH (16:13)
[2018-09-14] MEDS: ENOXAPARIN 30 MG/0.3 ML SYR SC SCH (16:13)
--- NOTE | 2018-09-14 16:54 | Progress Note ---
DATE: Pulmonary Critical Care Progress Note SUBJECTIVE: The patient was seen by Neurology and Infectious Disease. The cerebral lesions are most likely infectious in etiology. The patient is receiving IV antibiotics. He passed a swallowing test and is taking a mechanical soft diet with thickened liquids. PHYSICAL EXAMINATION: VITAL SIGNS: The patient is afebrile. The vital signs are stable. HEENT: Shows no facial swelling or erythema. The nasal mucosa is normal. The oropharynx is normal. LYMPHATIC: Shows no submandibular, cervical, or supraclavicular adenopathy. CARDIAC: Reveals regular rate and rhythm with normal S1, S2. There are no murmurs or rubs heard. LUNGS: Auscultation of lungs reveals clear breath sounds bilaterally. There is no wheezing. ABDOMEN: Soft, nontender. There is no rebound or guarding. EXTREMITIES: Show no leg edema or calf tenderness. There is no cyanosis or clubbing. SKIN: Shows no rashes. NEUROLOGIC: Shows the patient to be diffusely weak. IMPRESSION: 1. Multiple small brain abscesses of unclear cause. 2. Aspiration pneumonia with sepsis, present on admission. 3. Benign prostatic hypertrophy. 4. Severe protein-calorie malnutrition. 5. Microcytic anemia secondary to chronic blood loss. PLAN: 1. Continue current antibiotics. 2. Consult Cardiology for possible ESEQUIEL. 3. Continue to monitor nutritional status. 4. Monitor blood counts. Josh Simpson MD LM/JESUSL /[id number]
--- NOTE | 2018-09-14 18:20 | Consultation ---
DATE OF CONSULTATION: 09/14/2018 Cardiology Consult Note REASON FOR CONSULT: Numerous brain lesions, suspected endocarditis. CHIEF COMPLAINT: Altered mental status. HISTORY OF PRESENT ILLNESS: The patient is a 77-year-old man, no previous cardiovascular history, who was admitted with fevers and altered mental status, found to have numerous brain lesions, suspicion for cardioembolic source of infection. We were consulted to perform a transesophageal echocardiogram. The patient denies any chest pain, previous history of endocarditis, rheumatic fever. No history of any structural heart disease. No recent surgeries or procedures. PAST MEDICAL HISTORY: As above. SOCIAL HISTORY: The patient does not smoke, drink, or abuse IV drugs. FAMILY HISTORY: Noncontributory. REVIEW OF SYSTEMS: As per HPI, otherwise negative. OUTPATIENT MEDICATIONS: Reviewed. OBJECTIVE: VITAL SIGNS: Temperature 98.2, pulse 71, respiratory rate 19, blood pressure 135/67, and saturating 95% on room air. GENERAL: Thin elderly man, in no acute distress. CARDIOVASCULAR: Regular rate and rhythm. No murmurs, rubs, or gallops. LUNGS: Clear to auscultation anteriorly. ABDOMEN: Soft, nontender, and nondistended. NEURO AND PSYCH: Awake, alert, and oriented x2. INPATIENT MEDICATIONS: Reviewed. LABORATORY DATA: Reviewed. TELEMETRY DATA: Reviewed, shows normal sinus rhythm. IMAGING DATA: Reviewed. Brain MRI shows innumerable bilateral supratentorial and infratentorial ring-enhancing lesions with vasogenic edema concerning for multifocal abscess or septic emboli. ASSESSMENT: Numerous ring-enhancing lesions to the brain suspicious for septic emboli. PLAN: Plan to perform ESEQUIEL tomorrow with help of general anesthesia. MD MELISSA Mclean/JESUSL /[id number]
--- NOTE | 2018-09-14 19:00 | NUR ---
Report received. Assumed care. Assessment done. See interventions. IV D5NS with 20KCL @ 125ml/hr. Addendum: 09/14/18 at 1951 by Es Cid RN No IVF infusing at this time. IVPB only.
[2018-09-14] MEDS ORDERED: PHENYTOIN SODIUM INJ 50 MG/ML 2 ML VIAL IV SCH (21:00)
--- NOTE | 2018-09-14 21:19 | NUR ---
Assisted to restroom. Voided and had a moderate BM. Evita activity well.
[2018-09-15] VITALS (17 sets, daily range): BP systolic 122–161; BP diastolic 55–79
[2018-09-15] MEDS: ALBUTEROL/IPRATROPIUM 3 ML NEB NEB SCH ×4 (00:10→19:45)
[2018-09-15] MEDS: DEXAMETHASONE SOD PHOS INJ 4 MG/ML VIAL IV SCH ×4 (00:21→18:12)
[2018-09-15] MEDS: PIPER-TAZ 3.375 GM 50 ML IV SCH ×2 (00:21→06:00)
[2018-09-15 06:09] LABS: BASOPHILS % 0.2 % (0.0-1.0); HEMATOCRIT 25.4 % (38.2-49.6); HEMOGLOBIN 7.9 g/dL (14.0-18.0); LYMPHOCYTES # (AUTO) 0.7 (1.0-3.2); LYMPHOCYTES % 10.8 % (18.0-39.1); MEAN CORPUSCULAR HEMOGLOBIN 23.2 pg (28-32); MEAN CORPUSCULAR HGB CONC 31.1 g/dL (31-35); MEAN CORPUSCULAR VOLUME 74.7 fL (81-99); MONOCYTES # (AUTO) 0.4 (0.2-0.8); MONOCYTES % 5.5 % (4.4-11.3); NEUTROPHILS # (AUTO) 5.5 (2.1-6.9); PLATELET COUNT 224 x10e3/uL (140-360); RED CELL DISTRIBUTION WIDTH 20.6 % (11.7-14.4)
[2018-09-15] MEDS: VANCOMYCIN 1GM/NS 250 ML 250 ML IV SCH (06:53)
[2018-09-15] MEDS: FAMOTIDINE 20 MG/2 ML VIAL IV SCH (07:23)
[2018-09-15 07:52] LABS: ANION GAP 10.5 mmol/L (8-16); BLOOD UREA NITROGEN 10 mg/dL (7-26); BUN/CREATININE RATIO 15 (6-25); CALCIUM 8.2 mg/dL (8.4-10.2); CARBON DIOXIDE 21 mmol/L (22-29); CHLORIDE 108 mmol/L (98-107); CREATININE, SERUM 0.65 mg/dL (0.72-1.25); EST GLOMERULAR FILTRATION RATE > 60 ML/MIN (60-); GLUCOSE 118 mg/dL (74-118); POTASSIUM 3.5 mmol/L (3.5-5.1); SODIUM 136 mmol/L (136-145)
--- NOTE | 2018-09-15 08:45 | NUR ---
PATIENT ARRIVED TO ROOM 287. PATIENT ORIENTED TO ROOM AND POLICIES. CALL LIGHT WITHIN REACH. BED IN THE LOWEST POSITION.
[2018-09-15] MEDS: OYST-CAL-D 500MG TABLET PO SCH ×2 (09:00→18:12)
[2018-09-15] MEDS: GUAIFENESIN 600 MG TAB PO SCH ×2 (09:00→21:08)
[2018-09-15] MEDS: MEGESTROL ACETATE 40 MG TAB PO SCH ×2 (09:00→18:12)
--- NOTE | 2018-09-15 09:04 | NUR ---
patient transferred to floor. all personal belongings with patient. vitals stable with no distress. NPO for ESEQUIEL today.
[2018-09-15] MEDS: SODIUM FERRIC GLUCONATE COMPLX 125 MG in SODIUM CHLORIDE 0.9% 100 ML 100 ML IV SCH (09:27)
[2018-09-15] MEDS ORDERED: ONDANSETRON HCL 4 MG ORAL DISINTEGRATING TAB PO PRN (11:15)
--- NOTE | 2018-09-15 14:21 | NUR ---
LTAC EVAL ORDERED PT CHOSE [facility] CHOICE LETTER SIGNED AND ON CHART; COPY TO PT MOT INITIATED AND PLACED IN PACKET AT DESK [facility] WITH [facility] NOTIFIED OF CONSULT PT HAVING ESEQUIEL TODAY AROUND 3PM PLAN TRANSFER TO [facility] TOMORROW 09/16
--- NOTE | 2018-09-15 14:48 | NUR ---
CALLED BY PORFIRIO SONI WITH [facility] STATING THAT WHEN THEY RAN BENEFITS ON THIS PT HE IS SHOWING BL[facility] AND [facility] WILL SUBMIT AND TRANSFER TO [place] WHEN APPROVED
[2018-09-15] MEDS ORDERED: BENZOCAINE 20% SPR 60 ML CAN ONE (15:21)
[2018-09-15] MEDS ORDERED: SODIUM CHLORIDE 0.9% 1000ML 1,000 ML ONE (15:22)
--- NOTE | 2018-09-15 15:28 | NUR ---
PATIENT OFF THE UNIT TO [facility]CHANDISE TEAM MANAGER FOR PROCEDURE.
--- NOTE | 2018-09-15 16:00 | NUR ---
1538 - pt received for ESEQUIEL from [facility], placed on bedside monitoring. pt positioned for procedure. IV site patent to right AC 20g , VS wnl, NSR rythm 1540 - all responsible staff present, Timeout performed 1540 - hurricaine spray (spray 1) to oral cavity by Whiteside 1542 - hurricaine spray (spray 2) to oral cavity by Whiteside 1546 - bite block positioned and ESEQUIEL probe passed 1552 - agitated saline injected for bubble study 1554 - ESEQUIEL probe removed , no gross trauma or distress observed, no issues of known pressure, pallor or dysrhythmia 1559 - pt taken to PACU 11 for further recovery by CCL staff
--- NOTE | 2018-09-15 16:18 | NUR ---
PATIENT BACK FROM PROCEDURE AT THIS TIME. HE IS IN STABLE CONDITION.
--- NOTE | 2018-09-15 16:20 | NUR ---
Report provided to Johanna RN, review of procedural findings and medications given. Patient drowsy, easily aroused. maintains airway and room air saturations of 96-98%. No gross issues of pressure, pain, pallor or dysrhythmia. No gross neuro deficits at this time. IV site patent saline locked right AC. patient hemodynamically stable patient transferred to [facility] under own strength w/o incident. transported to [facility] on telemetry - [facility] procedure: ESEQUIEL w/ MAC Meds Given Intra-Procedure Sedatives propofol 100mg IV per Anesthesia Fluids Input - 200ml Output - dtv
[2018-09-15] MEDS ORDERED: PROPOFOL IV EMULSION 10 MG/ML 20 ML VIAL ONE (17:50)
[2018-09-15] MEDS ORDERED: LIDOCAINE HCL 2% LOCAL INJ 5 ML SDV VIAL INJ ONE (17:50)
[2018-09-15] MEDS: ENOXAPARIN 30 MG/0.3 ML SYR SC SCH (18:12)
[2018-09-15] MEDS: FAMOTIDINE 20 MG TAB PO SCH (18:12)
[2018-09-15] MEDS: TAMSULOSIN HCL 0.4 MG CAP PO SCH (18:12)
[2018-09-15] MEDS: PANTOPRAZOLE SOD 40 MG TABEC PO SCH (18:12)
--- NOTE | 2018-09-15 19:12 | NUR ---
REPORT GIVEN TO ONCOMING NURSE, WALKING ROUNDS DONE. PATIENT IS RESTING IN BED, NO ACUTE DISTRESS NOTED. FAMILY AT BEDSIDE. CALL LIGHT WITHIN REACH. BED IN THE LOWEST POSITION.
--- NOTE | 2018-09-15 20:10 | Progress Note ---
DATE: 09/15/2018 Cardiology Progress Note SUBJECTIVE: No major events overnight. Had ESEQUIEL done today. OBJECTIVE: VITAL SIGNS: Temperature afebrile, pulse 79, respiratory rate 18, blood pressure 151/63, and saturating 95% on room air. GENERAL: Thin elderly man in no acute distress. CARDIOVASCULAR: Regular rate and rhythm. No murmurs, rubs, or gallops. LUNGS: Clear to auscultation anteriorly. ABDOMEN: Soft, nontender, and nondistended. NEURO AND PSYCH: Alert and oriented to person, place, and time. Normal affect. INPATIENT MEDICATIONS: Reviewed. LABORATORY DATA: Reviewed. TELEMETRY DATA: Reviewed, shows normal sinus rhythm. ASSESSMENT: Numerous ring enhancing lesions in the brain suspicious for septic emboli. PLAN: ESEQUIEL showed no vegetations on the valves. No evidence of any thrombus or mass in any of the heart chambers. He does have a large PFO with easy [id number] shunt. We will get lower extremity venous Dopplers to look for any other source of possible emboli. Thank you for this consult. We will continue to follow. MD MELISSA Mclean/JESUSL /[id number]
[2018-09-15] MEDS: CEFTRIAXONE SOD 2 GM/NS 100 ML 100 ML IV SCH (21:07)
[2018-09-15] MEDS ORDERED: SODIUM CHLORIDE 0.9% 250ML 250 ML ONE (21:13)
[2018-09-15] MEDS: SODIUM CHLORIDE 0.9% IV SCH (22:37)
[2018-09-15] MEDS: PHENYTOIN SODIUM IV SCH (22:37)
[2018-09-16] VITALS (7 sets, daily range): BP systolic 154–181; BP diastolic 60–89
[2018-09-16] MEDS: DEXAMETHASONE SOD PHOS INJ 4 MG/ML VIAL IV SCH ×4 (00:09→17:06)
[2018-09-16] MEDS: ALBUTEROL/IPRATROPIUM 3 ML NEB NEB SCH ×4 (01:00→19:10)
[2018-09-16 04:06] LABS: ANION GAP 8.2 mmol/L (8-16); BLOOD UREA NITROGEN 12 mg/dL (7-26); BUN/CREATININE RATIO 21 (6-25); CALCIUM 8.2 mg/dL (8.4-10.2); CARBON DIOXIDE 24 mmol/L (22-29); CHLORIDE 108 mmol/L (98-107); CREATININE, SERUM 0.58 mg/dL (0.72-1.25); EST GLOMERULAR FILTRATION RATE > 60 ML/MIN (60-); GLUCOSE 100 mg/dL (74-118); MAGNESIUM 1.4 MG/DL (1.3-2.1); POTASSIUM 3.2 mmol/L (3.5-5.1); SODIUM 137 mmol/L (136-145)
--- NOTE | 2018-09-16 05:00 | NUR ---
BP IMPROVED 165/83 MM[facility]
[2018-09-16 06:33] LABS: BASOPHILS % 0.1 % (0.0-1.0); HEMATOCRIT 25.6 % (38.2-49.6); HEMOGLOBIN 8.2 g/dL (14.0-18.0); LYMPHOCYTES # (AUTO) 1.2 (1.0-3.2); LYMPHOCYTES % 13.9 % (18.0-39.1); MEAN CORPUSCULAR HEMOGLOBIN 23.6 pg (28-32); MEAN CORPUSCULAR VOLUME 73.6 fL (81-99); MONOCYTES # (AUTO) 0.8 (0.2-0.8); MONOCYTES % 9.6 % (4.4-11.3); NEUTROPHILS # (AUTO) 6.3 (2.1-6.9); NEUTROPHILS % 75.6 % (38.7-80.0); PLATELET COUNT 232 x10e3/uL (140-360); RED BLOOD COUNT 3.48 x10e6/uL (4.3-5.7); RED CELL DISTRIBUTION WIDTH 20.6 % (11.7-14.4)
--- NOTE | 2018-09-16 06:40 | NUR ---
PATIENT REFUSED BATH.
--- NOTE | 2018-09-16 07:04 | NUR ---
RECEIVED PATIENT RESTING IN BED. NO ACUTE DISTRESS NOTED. DENIES PAIN OR DISCOMFORT. CALL LIGHT WITHIN REACH. BED IN THE LOWEST POSITION.
[2018-09-16] MEDS: OYST-CAL-D 500MG TABLET PO SCH ×2 (08:11→17:06)
[2018-09-16] MEDS: PANTOPRAZOLE SOD 40 MG TABEC PO SCH (08:11)
[2018-09-16] MEDS: CEFTRIAXONE SOD 2 GM/NS 100 ML 100 ML IV SCH ×2 (08:11→21:52)
[2018-09-16] MEDS: FAMOTIDINE 20 MG TAB PO SCH ×2 (08:11→17:06)
[2018-09-16] MEDS: TAMSULOSIN HCL 0.4 MG CAP PO SCH (08:11)
[2018-09-16] MEDS: MEGESTROL ACETATE 40 MG TAB PO SCH ×2 (08:11→17:06)
[2018-09-16] MEDS: GUAIFENESIN 600 MG TAB PO SCH ×2 (08:11→21:52)
--- NOTE | 2018-09-16 09:00 | NUR ---
TECH AND NURSE OFFERED PATIENT A SHOWER, PATIENT REFUSED.
[2018-09-16] MEDS: SODIUM FERRIC GLUCONATE COMPLX 125 MG in SODIUM CHLORIDE 0.9% 100 ML 100 ML IV SCH (09:30)
[2018-09-16] MEDS ORDERED: POTASSIUM CHLORIDE 20 MEQ TAB CR PO NR (10:00)
--- NOTE | 2018-09-16 11:38 | Progress Note ---
DATE: SUBJECTIVE: The patient seen and examined today. The patient appears comfortable. Clinical condition is stable. Current hemoglobin is improving. OBJECTIVE: GENERAL: Alert, awake, communicative. HEENT: Normocephalic, atraumatic. Sclerae pale. Conjunctivae clear. NECK: Supple. CHEST: Decreased breath sounds in the bases. CARDIOVASCULAR: Regular rate and rhythm. ABDOMEN: Soft. EXTREMITIES: No edema. LABS AND IMAGING: Reviewed. ASSESSMENT AND PLAN: The patient with history of multiple medical conditions including anemia, currently on iron treatment. Hemoglobin has improved. No evidence of active bleeding. Continue current care. Pneumonia and sepsis, following ID. The patient also has an MRI, shows brain septic lesion, is following neurologist and ID. Continue to follow their recommendation. We will follow. MD CORNELIUS Bradford/COLETTE /[id number]
--- NOTE | 2018-09-16 15:09 | Progress Note ---
DATE: SUBJECTIVE: The patient has no new complaints. He went for a ESEQUIEL today that showed no vegetations. There was a pro-patent foramen ovale. PHYSICAL EXAMINATION: VITAL SIGNS: The patient is afebrile. The vital signs are stable. HEENT: Shows no facial swelling or erythema. The nasal mucosa is normal. LYMPHATIC: Shows no submandibular, cervical, or supraclavicular adenopathy. CARDIAC: Reveals regular rate and rhythm with normal S1 and S2. LUNGS: Auscultation of lungs reveals clear breath sounds bilaterally. There is no wheezing. ABDOMEN: Soft, nontender. There is no rebound or guarding. EXTREMITIES: Show no leg edema or calf tenderness. IMPRESSION: 1. Streptococcal bacteremia with brain abscesses. 2. Aspiration pneumonia with sepsis, present on admission. 3. Moderate protein-calorie malnutrition. 4. Anemia secondary to chronic blood loss. 5. Hypertension. 6. Benign prostatic hypertrophy. PLAN: 1. Continue IV Rocephin. According to ID, the patient will need the antibiotics for eight weeks. 2. Continue to monitor nutritional status. 3. Physical therapy. 4. Considering LTAC. Josh Simpson MD [facility]/MODL /[id number]
[2018-09-16] MEDS: ENOXAPARIN 30 MG/0.3 ML SYR SC SCH (17:06)
--- NOTE | 2018-09-16 19:16 | NUR ---
REPORT GIVEN TO ONCOMING NURSE, WALKING ROUNDS DONE. PATIENT IS RESTING IN BED. NO ACUTE DISTRESS NOTED. FAMILY AT BEDSIDE. CALL LIGHT WITHIN REACH. BED IN THE LOWEST POSITION.
[2018-09-16] MEDS: SODIUM CHLORIDE 0.9% IV SCH (21:00)
[2018-09-16] MEDS: PHENYTOIN SODIUM IV SCH (21:00)
--- NOTE | 2018-09-16 22:28 | NUR ---
PICC line dressing changed.
[2018-09-17] MEDS: DEXAMETHASONE SOD PHOS INJ 4 MG/ML VIAL IV SCH ×4 (00:14→17:32)
--- NOTE | 2018-09-17 00:42 | NUR ---
PATIENT COMPLAIN OF WATERY STOOL AND PAIN DURING URINATION. SPOKE WITH [employer]S MAINTAINER, NEW ORDERS RECEIVED.
[2018-09-17] MEDS ORDERED: CHOLESTYRAMINE 4 GM PACKET PO ONE (00:45)
[2018-09-17] MEDS: ALBUTEROL/IPRATROPIUM 3 ML NEB NEB SCH ×3 (01:55→13:30)
[2018-09-17] MEDS: ACETAMINOPHEN 325 MG TAB PO PRN (03:54)
[2018-09-17 04:00] VITALS: BP 190/93
[2018-09-17 04:16] LABS: BASOPHILS % 0.1 % (0.0-1.0); HEMATOCRIT 32.8 % (38.2-49.6); HEMOGLOBIN 10.4 g/dL (14.0-18.0); LYMPHOCYTES % 7.8 % (18.0-39.1); MEAN CORPUSCULAR HEMOGLOBIN 23.1 pg (28-32); MEAN CORPUSCULAR HGB CONC 31.7 g/dL (31-35); MEAN CORPUSCULAR VOLUME 72.9 fL (81-99); MONOCYTES # (AUTO) 1.2 (0.2-0.8); MONOCYTES % 9.4 % (4.4-11.3); NEUTROPHILS # (AUTO) 10.2 (2.1-6.9); NEUTROPHILS % 81.1 % (38.7-80.0); PLATELET COUNT 296 x10e3/uL (140-360); RED CELL DISTRIBUTION WIDTH 20.8 % (11.7-14.4)
--- NOTE | 2018-09-17 04:30 | NUR ---
patient complain of difficulty urinating and hard stool. bladder scan done and revealed 491 ml urine. [place] CAR[employer] INST[employer]ATION SPECIALIST notified. new orders received. Hawley catheter inserted with 500 ml urine noted.
[2018-09-17 04:31] LABS: ANION GAP 14.5 mmol/L (8-16); BLOOD UREA NITROGEN 10 mg/dL (7-26); BUN/CREATININE RATIO 14 (6-25); CALCIUM 9.1 mg/dL (8.4-10.2); CARBON DIOXIDE 20 mmol/L (22-29); CHLORIDE 101 mmol/L (98-107); EST GLOMERULAR FILTRATION RATE > 60 ML/MIN (60-); GLUCOSE 99 mg/dL (74-118); POTASSIUM 3.5 mmol/L (3.5-5.1); SODIUM 132 mmol/L (136-145)
[2018-09-17 06:14] LABS: BILIRUBIN,URINE NEGATIVE (NEGATIVE); CLARITY,URINE CLEAR (CLEAR); COLOR,URINE YELLOW (YELLOW); KETONES,URINE NEGATIVE (NEGATIVE); LEUKOCYTE ESTERASE ,URINE NEGATIVE (NEGATIVE); NITRITE,URINE NEGATIVE (NEGATIVE); PROTEIN,URINE DIPSTICK NEGATIVE (NEGATIVE); URINE UROBILINOGEN 0.2 mg/dL (0.2 - 1)
[2018-09-17 06:31] LABS: RBC,URINE 21-50 /HPF (0-5); WBC,URINE (MAN) 0-5 /HPF (0-5)
[2018-09-17 06:32] LABS: BACTERIA,URINE FEW /HPF; EPITHELIAL CELLS,URINE RARE /LPF
--- NOTE | 2018-09-17 07:00 | NUR ---
RECEIVED AM REPORT FROM NURSE. PT IS ASLEEP IN BED, NO S/S OF DISTRESS, FAMILY IS AT BEDSIDE
[2018-09-17 08:07] VITALS: BP 177/82
--- NOTE | 2018-09-17 08:44 | Diagnostic Imaging Report ---
Examination: Single AP view of the chest. COMPARISON: 09/13/2018 INDICATION: Dyspnea, weakness DISCUSSION: Left upper extremity PICC is unchanged in position. Lungs are well-inflated and without focal consolidation, effusion, or pneumothorax. Left apical pleural-parenchymal scar is unchanged, as is a serpiginous nodular opacity along the left heart border, shown to represent an arteriovenous malformation on CT chest 09/11/2018. No acute osseous abnormality. IMPRESSION: Stable chest relative to 09/13/2018. No new consolidations. 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 Signed by: Dr. Deven Vargas M.D. on 09/17/2018 8:40 AM
[2018-09-17] MEDS: FAMOTIDINE 20 MG TAB PO SCH ×2 (09:02→17:24)
[2018-09-17] MEDS: TAMSULOSIN HCL 0.4 MG CAP PO SCH (09:02)
[2018-09-17] MEDS: PANTOPRAZOLE SOD 40 MG TABEC PO SCH (09:02)
[2018-09-17] MEDS: MEGESTROL ACETATE 40 MG TAB PO SCH ×2 (09:02→17:24)
[2018-09-17] MEDS: OYST-CAL-D 500MG TABLET PO SCH ×2 (09:02→17:24)
[2018-09-17] MEDS: GUAIFENESIN 600 MG TAB PO SCH (09:02)
[2018-09-17] MEDS: CEFTRIAXONE SOD 2 GM/NS 100 ML 100 ML IV SCH (09:03)
[2018-09-17 09:08] VITALS: BP 177/82
--- NOTE | 2018-09-17 10:00 | NUR ---
RECEIVED CALL FROM PORFIRIO SONI THIS AM STATING THAT PT HAS NO LTAC BENEFITS THRU HIS [employer] INSURANCE THEY WILL TRY TO GET HIM AUTHORIZED THRU HIS SECONDARY; MCR SHE WILL F/U WITH ME TODAY
[2018-09-17] MEDS: SODIUM FERRIC GLUCONATE COMPLX 125 MG in SODIUM CHLORIDE 0.9% 100 ML 100 ML IV SCH (10:45)
[2018-09-17 11:30] VITALS: BP 162/83
[2018-09-17 15:39] VITALS: BP 137/75
--- NOTE | 2018-09-17 17:19 | NUR ---
GAVE REPORT TO CIELO JEFFRIES AT [facility]
[2018-09-17] MEDS: ENOXAPARIN 30 MG/0.3 ML SYR SC SCH (17:32)
[2018-09-17] MEDS ORDERED: DEXAMETHASONE 4 MG TAB PO SCH (18:00)
--- NOTE | 2018-09-17 18:30 | NUR ---
PT WAS TRANSPORTED TO [facility] AREA ROOM 309 BY EMS. IV AND [facility] INTACT/PATENT. PT LEFT IN STABLE CONDITION
--- NOTE | 2018-09-17 20:46 | Consultation ---
DATE OF CONSULTATION: 09/17/2018 Urologic Consultation Consultation is called by Dr. Falcon. CHIEF COMPLAINT AND REASON FOR CONSULTATION: Urinary retention. HISTORY OF PRESENT ILLNESS: Mr. Betts is a 77-year-old male patient, admitted to the hospital with altered mental status, found to have brain abscesses. Urologic consultation was requested for urinary retention. There is no gross hematuria. Hawley catheter is draining well. PAST MEDICAL HISTORY: Notable for BPH, urinary tract infections, brain abscess, anemia, dementia, PFO with [id number] shunt, gastroesophageal reflux disease, and status post appendectomy. MEDICATIONS: Please see MAR. ALLERGIES: NKDA. SOCIAL HISTORY: Denied smoking or drinking. FAMILY HISTORY: Denied urologic stones or malignancies. REVIEW OF SYSTEMS: Noncontributory other than problems mentioned above for 12 organ systems. PHYSICAL EXAMINATION: GENERAL: Elderly male, in no acute distress. VITAL SIGNS: Currently, he is afebrile. Stable vital signs. Sclerae anicteric. NECK: Supple. BACK: Without costovertebral angle tenderness bilaterally. ABDOMEN: Soft. It is nontender. It is nondistended. No palpable mass. No palpable hernias. No palpable adenopathy. : Normal external genitalia. Hawley catheter draining yellow urine. EXTREMITIES: Nontender. PSYCH: Alert. Mood appropriate. SKIN: Intact. Normal color. PERTINENT LABORATORY DATA: CT scan of the head per report. CT scan of the abdomen has been ordered and there is no report available. Urinalysis showed positive blood, positive protein. Sodium 137, potassium 3.2, chloride 108, bicarb 24, BUN 12, creatinine 0.58, glucose 100. Hemoglobin 8, hematocrit 25, platelet count 232,000, and white cell count 8000. PT of 18.9 and PTT of 47.6. IMPRESSION: 1. Urinary retention. 2. Benign prostatic hypertrophy. 3. Question of neurogenic bladder secondary to brain abscess. 4. Urinary tract infections. 5. Microscopic hematuria. 6. Anemia. 7. Coagulopathy. 8. Proteinuria. PLAN: Do not discontinue the patient's Hawley catheter. He will need outpatient urodynamics to determine the diagnosis of BPH versus emergent bladder secondary to the concomitant neurologic conditions. The patient has been placed on antibiotics for urine culture, agree with this. The patient has microscopic hematuria, can safely perform an outpatient elective cystoscopy. For BPH, the patient has been on tamsulosin. Anemia, coagulopathy, proteinuria, defer to the primary service. Thank you for allowing me to participate in the care of your patient. From urologic standpoint, the patient may be safely transferred to the LTAC as planned this afternoon. Wicho Sharp MD ES/MODL /[id number] cc: Teddy Falcon MD
[2018-09-17] MEDS ORDERED: PHENYTOIN SODIUM EXT REL 100 MG CAP PO SCH (21:00)
== END 2018-09-17 18:28 | DRG 871 ==
LOC: MED/SURG3 11:59 → ICU 13:23 → MED/SURG3 09-15 08:55
PROVIDERS: ADMIT Internal Medicine; ATTEND Internal Medicine
PROC: 02HV33Z Insertion of Infusion Device into Superior Vena Cava, Percutaneous Approach (ICD-10-PCS; principal; 2018-09-13)
DX: A41.9 Sepsis, unspecified organism (principal); J69.0 Pneumonitis due to inhalation of food and vomit; G93.41 Metabolic encephalopathy; E43 Unspecified severe protein-calorie malnutrition; G06.0 Intracranial abscess and granuloma; G93.6 Cerebral edema; D68.9 Coagulation defect, unspecified; D50.0 Iron deficiency anemia secondary to blood loss (chronic); N40.0 Benign prostatic hyperplasia without lower urinary tract symptoms; K21.9 Gastro-esophageal reflux disease without esophagitis; Z68.22 Body mass index [BMI] 22.0-22.9, adult; L89.152 Pressure ulcer of sacral region, stage 2; R19.7 Diarrhea, unspecified; N40.1 Benign prostatic hyperplasia with lower urinary tract symptoms; R33.8 Other retention of urine; R65.20 Severe sepsis without septic shock; N31.8 Other neuromuscular dysfunction of bladder
CPT/HCPCS: 36415; 36569; 36600; 70553; 71045; 71260; 74177; 74230; 76700; 80048; 80053; 80185; 80202; 81001; 82140; 82607; 82728; 82746; 82805; 83036; 83540; 83735; 83880; 84439; 84443; 84466; 85025; 85610; 85651; 85730; 87040; 87070; 87086; 87186; 87205; 87390; 93306; 93307; 93312; 93325; 93880; 93970; 94640; 97139; G0433; G0435; J0360; J0456; J0696; J1100; J1165; J1650; J2001; J2543; J2916; J3370; J7030; J7050; Q2009; Q9967